=== PATIENT | male | born 1950 | race Caucasian/White ===

== ENCOUNTER → 2021-07-30 | Day surgery (SDC) | payer MEDICARE, OTHER ==
[~2021-07-30] MED LIST: ASPI-630 PO; ATOR10TA PO; CETI10TA74 PO; IPRATRPIUM/ALBUTEROL 0.5/2.5MG 3 ML NEBU. NEB PRN; IV RINGERS SOLUTION,LACTATED 1,000 ML IV SCH; LIDOCAINE 2% PF 5 ML VIAL. ONE; LOSA100T14 PO; METF10007 PO; MIDAZOLAM HCL PF 2 MG/2 ML VIAL. IV ONE; ONDANSETRON PF 4 MG/2 ML VIAL. IV PRN; PROPOFOL 10,000 MCG/ML (20ML) VIAL IV ONE; VALS1TAB23 PO; trulicity SUBCUT
[2021-07-30 11:02] VITALS: BP 112/77
== END | disposition home or self-care (01) ==
LOC: SURG 08:43
PROVIDERS: ATTEND Internal Medicine Gastroenterology
DX: R19.5 Other fecal abnormalities (principal); K57.30 Diverticulosis of large intestine without perforation or abscess without bleeding; K63.5 Polyp of colon; E11.9 Type 2 diabetes mellitus without complications; M19.90 Unspecified osteoarthritis, unspecified site; G47.30 Sleep apnea, unspecified; I10 Essential (primary) hypertension; E78.5 Hyperlipidemia, unspecified; E66.01 Morbid (severe) obesity due to excess calories; Z80.0 Family history of malignant neoplasm of digestive organs; Z86.010 Personal history of colon polyps; Z98.49 Cataract extraction status, unspecified eye; Z72.89 Other problems related to lifestyle; Z79.899 Other long term (current) drug therapy; Z79.82 Long term (current) use of aspirin
CPT/HCPCS: 45385; 82947; J2001; J2704; J7120; G0105